=== PATIENT | male | born 1955 | race Caucasian/White ===

== ENCOUNTER → 2018-03-07 | Outpatient (CLI) | payer OTHER | LOC: FIMAGING 14:45 | PROVIDERS: ATTEND Physician Assistant | DX: Z98.3 Post therapeutic collapse of lung status (principal); J90 Pleural effusion, not elsewhere classified; J98.11 Atelectasis; Z97.8 Presence of other specified devices ==

== ENCOUNTER → 2018-03-08 | Outpatient (CLI) | payer OTHER | LOC: FLAB 15:19 | PROVIDERS: ATTEND Surgery | DX: J98.4 Other disorders of lung (principal) ==

== ENCOUNTER 2018-03-21 05:40 | Observation (INO) | payer OTHER ==
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
[2018-03-21] MEDS ORDERED: ceFAZolin 2 GM/DEXTROSE 100 ML IV ONE (06:01)
[2018-03-21] MEDS ORDERED: LR 1,000 ML IV ONE (06:02)
[2018-03-21] MEDS ORDERED: fentaNYL 100 MCG/2 ML INJ ONE ×3 (06:37→11:18)
[2018-03-21] MEDS ORDERED: ROCURONIUM 50 MG/5 ML VIAL ONE (06:37)
[2018-03-21] MEDS ORDERED: PROPOFOL 200 MG/20 ML VIAL ONE ×3 (06:37→07:46)
[2018-03-21] MEDS ORDERED: MIDAZOLAM 2 MG/2 ML VIAL IVP ONE (06:39)
--- NOTE | 2018-03-21 06:48 | PDHPUP ---
History & Physical Update H&P update statement: This history and physical update is based on an assessment of the patient which was completed after admission or registration (within 24 hours), but prior to the surgery/procedure. H&P update: H&P reviewed & patient examined, no change in patient's condition since H&P completed
[2018-03-21] MEDS ORDERED: BUPIVACAINE/EPI 0.5% 30 ML SDV ONE (06:58)
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
[2018-03-21] MEDS ORDERED: DEXAMETHASONE 4 MG/ML VIAL ONE (07:43)
[2018-03-21] MEDS ORDERED: KETOROLAC 30 MG/1 ML SDV ONE (07:43)
[2018-03-21] MEDS ORDERED: ONDANSETRON 4 MG/2 ML VIAL ONE (07:43)
[2018-03-21] MEDS ORDERED: METOCLOPRAMIDE 10 MG/2 ML VIAL ONE (07:43)
[2018-03-21] MEDS ORDERED: LR 500 ML IV PRN (07:47)
[2018-03-21] MEDS ORDERED: fentaNYL 100 MCG/2 ML INJ IVP PRN (07:47)
[2018-03-21] MEDS ORDERED: PROMETHAZINE HCL 25 MG/ML INJ IVP PRN (07:47)
[2018-03-21] MEDS ORDERED: MEPERIDINE 25 MG/0.5 ML AMP IVP PRN (07:47)
[2018-03-21] MEDS ORDERED: HYDROmorphONE/DILAUDID 2 MG/ML INJ IVP PRN (07:47)
[2018-03-21] MEDS ORDERED: PHENYLEPHRINE HCL 100 MCG/ML SYR IVP PRN (07:47)
[2018-03-21] MEDS ORDERED: ALBUTEROL 3 ML DEYVIAL IH PRN (07:47)
[2018-03-21] MEDS ORDERED: ONDANSETRON 4 MG/2 ML VIAL IVP PRN (07:47)
[2018-03-21] MEDS ORDERED: NALOXONE HCL 0.4 MG/ML INJ IVP PRN (07:47)
[2018-03-21] MEDS ORDERED: LABETALOL HCL 5 MG/ML 20 ML MDV IVP PRN (07:47)
[2018-03-21] MEDS ORDERED: HYDROCODONE/APAP 5/325 TAB PO PRN (07:47)
[2018-03-21] MEDS ORDERED: OXYCODONE/APAP 5/325 TAB PO PRN (10:48)
[2018-03-21] MEDS ORDERED: KETOROLAC 30 MG/1 ML SDV IVP ONE (10:48)
--- NOTE | 2018-03-21 10:50 | POSTANESTH ---
Post Anesthetic Evaluation Respiratory Status: Normal, Stable Level of Consciousness/Mental Status: Can Participate in Eval Pain Control: Adequate, Prn Tx Ordered Nausea/Vomiting Control: Adequate, Prn Tx Ordered Complications Possibly Related to Anesthesia: None Noted
--- NOTE | 2018-03-21 10:54 | POSTOPPROG ---
Post Op Note Date of Operation: 03/21/18 Surgeon: Jose Tadeo Chemistry Tutor: tasha Jerez MD Anesthesiologist: Remedios Anesthesia: GET(General Endotracheal) Pre-op Diagnosis: scapular body, glenoid fracture Post-op Diagnosis: same Indication: displaced fracture/articular surface Procedure: ORIF scapula/glenoid Inf/Abcess present in the surg proc area at time of surgery?: No EBL: 50-100 Complications: none
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
[2018-03-21] MEDS: KETOROLAC 15 MG/1 ML SDV IVP SCH ×3 (12:47→23:52)
[2018-03-21] MEDS: ceFAZolin 2 GM/DEXTROSE 100 ML IV SCH ×2 (16:17→23:53)
[2018-03-22] MEDS: KETOROLAC 15 MG/1 ML SDV IVP SCH (06:07)
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
[2018-03-22 07:37] VITALS: BP 115/75
== END 2018-03-22 09:45 | disposition home or self-care (01) ==
LOC: F3N 05:40 → EDSTATUS 07:15 → F3N 12:10
PROVIDERS: ADMIT Orthopaedic Surgery; ATTEND Orthopaedic Surgery
PROC: BP1 Imaging, Non-Axial Upper Bones, Fluoroscopy (ICD-10-PCS; principal; 2018-03-21 07:15)
PROC: 0PS804Z Reposition Left Glenoid Cavity with Internal Fixation Device, Open Approach (ICD-10-PCS; principal; 2018-03-21 07:15)
PROC: 0PS604Z Reposition Left Scapula with Internal Fixation Device, Open Approach (ICD-10-PCS; principal; 2018-03-21 07:15)
DX: S42.112A Displaced fracture of body of scapula, left shoulder, initial encounter for closed fracture (principal); S42.142A Displaced fracture of glenoid cavity of scapula, left shoulder, initial encounter for closed fracture; S42.022D Displaced fracture of shaft of left clavicle, subsequent encounter for fracture with routine healing; V19.88XD Pedal cyclist (driver) (passenger) injured in other specified transport accidents, subsequent encounter; Y93.55 Activity, bike riding; Y99.8 Other external cause status
CPT/HCPCS: 23585; 73030; 76001; G0378; C1713; J0690; J1100; J1885; J2250; J2405; J2704; J2765; J3010